=== PATIENT | female | born 1990 | race Caucasian/White ===

== ENCOUNTER → 2017-12-07 13:53 | Outpatient (CLI) | payer OTHER, SELFPAY ==
--- NOTE | 2017-12-07 14:03 | XR_ITS ---
XR chest 2V HISTORY: ITS.REASON: COUGH ORDERING PHYSICIAN: Rod Hairston MD PATIENT AGE: 27 years COMPARISON: None FINDINGS: The cardiomediastinal silhouette and pulmonary vascularity are within normal limits. The lungs are clear without infiltrates, suspicious nodules, or pleural effusions. There is mild bronchial thickening in the right perihilar region. No acute bony abnormalities. IMPRESSION: Mild bronchial thickening suggesting bronchitis
== END ==
PROVIDERS: PCP Family Medicine; Visit Provider Family Medicine
DX: R05 Cough (principal)
CPT/HCPCS: 71046

== ENCOUNTER → 2020-03-13 13:54 | Outpatient (CLI) | payer OTHER, SELFPAY ==
--- NOTE | 2020-03-13 14:04 | US_ITS ---
PROCEDURE: US THYROID CLINICAL INDICATION: THYROMEGALY COMPARISON: FINDINGS: Right lobe: Right lobe is 3.8 x 1.2 x 1.2 cm has an unremarkable appearance. Left lobe: 4.3 x 0.8 x 1.4 cm. A 4 mm hypoechoic nodules present in the lower pole on the left Isthmus: Unremarkable Additional findings: Small nodule lower pole on the left. IMPRESSION: Small nodule lower pole on the left, consider 6-12 month follow-up otherwise Dictated by: Edgardo Palomino MD 03/13/2020 17:54 Edgardo Palomino MD in [place] 03/13/2020 17:54
== END ==
PROVIDERS: PCP Family Medicine; Visit Provider Family Medicine
DX: E01.0 Iodine-deficiency related diffuse (endemic) goiter (principal)
CPT/HCPCS: 76536

== ENCOUNTER → 2021-01-17 15:50 | Outpatient (CLI) | payer OTHER, SELFPAY | PROVIDERS: PCP Family Medicine; Visit Provider Nurse Practitioner | DX: Z20.822 Contact with and (suspected) exposure to COVID-19 (principal) | CPT/HCPCS: C9803; U0003; U0005 ==

== ENCOUNTER → 2021-02-23 20:17 | Outpatient (CLI) | payer OTHER, SELFPAY ==
--- NOTE | 2021-02-23 20:38 | XR_ITS ---
PROCEDURE INFORMATION: Exam: XR Chest Exam date and time: 02/23/2021 8:38 PM Age: 30 years old Clinical indication: Screening exam; Other screening; Patient HX: Covid screening TECHNIQUE: Imaging protocol: XR of the chest. Views: 1 view. COMPARISON: CR CXR2V XR chest 2V 12/07/2017 2:06 PM FINDINGS: Lungs: Unremarkable. No consolidation. Pleural spaces: Unremarkable. No pleural effusion. No pneumothorax. Heart/Mediastinum: Unremarkable. No cardiomegaly. Bones/joints: Unremarkable. IMPRESSION: No acute findings.
[2021-02-23 20:40] LABS: Adenovirus,PCR Not Detected (NotDetected); Bordetella Pertussis Not Detected (NotDetected); Chlamydophila Pneumoniae, PCR Not Detected (NotDetected); Coronavirus 19, PCR Not Detected (NotDetected); Coronavirus 229E Not Detected (NotDetected); Coronavirus NL63 Not Detected (NotDetected); Coronavirus OC43 Not Detected (NotDetected); Coronovirus HKU1,PCR Not Detected (NotDetected); Human Metapneumovirus Not Detected (NotDetected); Influenza A, PCR Not Detected (NotDetected); Influenza AH1, 2009 Not Detected (NotDetected); Influenza AH1, PCR Not Detected (NotDetected); Influenza AH3,PCR Not Detected (NotDetected); Influenza B, PCR Not Detected (NotDetected); Mycoplasma Pneumoniae, PCR Not Detected (NotDetected); Parainfluenza 1, PCR Not Detected (NotDetected); Parainfluenza 2, PCR Not Detected (NotDetected); Parainfluenza 3, PCR Not Detected (NotDetected); Parainfluenza 4, PCR Not Detected (NotDetected); Respiratory Syncytial Virus Not Detected (NotDetected); Rhinovirus/Enterovirus Not Detected (NotDetected)
[2021-02-23 20:46] LABS: Basophils # 0.1 K/mm3 (0-0.2); Basophils % 1.1 % (0.1-2.0); Eosinophils # 0.7 K/mm3 (0.0-0.4); Eosinophils % 7.1 % (0.1-12.0); Hemoglobin 14.8 g/dL (12.2-16.2); Lymphocytes # 3.4 K/mm3 (0.7-4.5); Mean Corpuscular HGB Conc 32.9 g/dL (31.8-35.4); Mean Corpuscular Hemoglobin 29.8 pg (27.0-31.2); Mean Corpuscular Volume 90.5 fl (81-99); Mean Platelet Volume 7.2 fl (7.4-10.4); Monocytes # 0.3 K/mm3 (0.1-1.0); Monocytes % 3.1 % (1.7-9.3); Neutrophils # 5.5 K/mm3 (1.8-7.8); Neutrophils % 54.7 % (37.0-80.0); Platelet Count 349 K/mm3 (142-424); Red Blood Count 4.98 M/mm3 (4.20-5.40); Red Cell Distribution Width 12.5 % (11.5-17.5); White Blood Count 10.1 K/mm3 (4.8-10.8)
== END ==
PROVIDERS: PCP Family Medicine; Visit Provider Family Medicine
DX: Z20.822 Contact with and (suspected) exposure to COVID-19 (principal)
CPT/HCPCS: 36415; 71045; 85025; 87581; 87632; 87798; C9803; U0003; U0005

== ENCOUNTER → 2021-05-09 10:46 | Outpatient (CLI) | payer OTHER, SELFPAY ==
--- NOTE | 2021-05-09 10:49 | US_ITS ---
FINAL REPORT CLINICAL HISTORY: THYROID NODULE COMPARISON: March 13, 2020 FINDINGS: THYROID ULTRASOUND The right lobe of the thyroid measures 4.2 x 1.2 x 1.1 cm. The left lobe of the thyroid measures 4.2 x 1.3 x 0.9 cm. The parenchyma shows normal echogenicity. There is a 6 x 5 x 3 mm solid isoechoic TI-RADS 3 nodule in in the left lobe of the thyroid that is not significantly changed from the prior exam. There is a 2 mm anechoic right thyroid nodule consistent with a TI-RADS 1 that is not changed from the prior exam. No dominant mass is seen. IMPRESSION: No significant change in small nodules. No follow-up recommended. Reviewed, Interpreted and Dictated by Daniel Benavides III, MD Transcribed by Rahul Beck Authenticated by Daniel Benavides III, MD on 05/09/2021 01:44:43 PM [facility]
== END ==
PROVIDERS: PCP Family Medicine; Visit Provider Family Medicine
DX: E04.1 Nontoxic single thyroid nodule (principal)
CPT/HCPCS: 76536

== ENCOUNTER → 2021-08-21 11:41 | Outpatient (CLI) | payer OTHER, SELFPAY | PROVIDERS: PCP Family Medicine; Visit Provider Family Medicine | DX: U07.1 COVID-19 (principal) | CPT/HCPCS: C9803; U0003; U0005 ==

== ENCOUNTER 2022-02-18 23:29 | Emergency (ER) | payer OTHER, SELFPAY ==
[2022-02-18 23:30] VITALS: BP 150/83; PULSE 104; RESP 16; TEMP 37.3; O2SAT 98; BMI 28.2
--- NOTE | 2022-02-18 23:56 | CT_ITS ---
PROCEDURE INFORMATION: Exam: CT Abdomen And Pelvis With Contrast Exam date and time: 02/19/2022 12:23 AM Age: 31 years old Clinical indication: Abdominal pain; Localized; Right lower quadrant (rlq); Patient HX: Rlq abd pain; Additional info: Rlq pain TECHNIQUE: Imaging protocol: Computed tomography of the abdomen and pelvis with contrast. Radiation optimization: All CT scans at this facility use at least one of these dose optimization techniques: automated exposure control; mA and/or kV adjustment per patient size (includes targeted exams where dose is matched to clinical indication); or iterative reconstruction. Contrast material: ISOVUE; Contrast volume: 75 ml; Contrast route: IV; COMPARISON: CR XR CHEST PORTABLE 02/23/2021 8:30 PM FINDINGS: Lungs: Visualized lung bases are clear. Heart: Heart size normal. Mediastinal space: The visualized distal esophagus is largely contracted without gross abnormality. Liver: Normal contour. No mass lesions. No intrahepatic biliary ductal dilatation. Gallbladder and bile ducts: The gallbladder is partially contracted but otherwise unremarkable. Nondilated common bile duct. Pancreas: Normal. No inflammatory changes or ductal dilation. Spleen: Normal. No splenomegaly. Adrenal glands: Normal. No adrenal mass. Kidneys and ureters: No acute abnormalities. No hydronephrosis or hydroureter. No urinary tract stones are identified. Stomach and bowel: The stomach is moderately distended with food and fluid content. Question mildly excessive fluid content in the mid and distal small bowel segments with equivocal slight increase in bowel wall enhancement. This is suspicious for mild gastroenteritis. No tara bowel dilatation or transition point. No evidence of bowel obstruction, perforation, or abscess. No acute colonic abnormalities. Appendix: The appendix is normal in caliber measuring 2-3 mm diameter, and demonstrates no evidence of appendicitis. 3 mm hyperdense appendicolith in the proximal appendiceal lumen Intraperitoneal space: No free fluid or air. Vasculature: No acute process. No abdominal aortic aneurysm. Lymph nodes: No adenopathy. Urinary bladder: Unremarkable as visualized. Reproductive: Unremarkable as visualized. Bones/joints: No acute osseous abnormalities. Soft tissues: Unremarkable. IMPRESSION: 1. The appendix is normal in caliber and demonstrates no evidence of acute appendicitis. There is a small 3 mm appendicolith in the appendiceal lumen. 2. Question mild changes of gastroenteritis. No evidence of bowel obstruction, perforation, or abscess.
[2022-02-18 23:59] LABS: Microscopic, Urine URINE MICROSCOPIC (MICROSCOPIC)
[2022-02-19 00:01] LABS: Appearance,Urine SL CLOUDY (Clear); Bilirubin,Urine Negative (Negative); Blood, Urine Negative (Negative); Color,Urine YELLOW (Yellow); Glucose,Urine (UA) Negative (Negative); Ketones,Urine TRACE (Negative); Leukocyte Esterase,Urine Negative (Negative); Nitrate,Urine Negative (Negative); Protein,Urine Negative (Negative); Specific Gravity, Urine 1.015 (1.005-1.030); Urobilinogen,Urine 0.2 EU/dl (0.2)
[2022-02-19 00:04] LABS: Urine Pregnancy, HCG Qual. Negative (Negative)
[2022-02-19 00:33] LABS: Bacteria,Urine Trace /lpf; WBC,Urine Occasional #/hpf (0-3)
[2022-02-19 00:34] LABS: Basophils # 0.1 K/mm3 (0-0.2); Basophils % 1.3 % (0.1-2.0); Eosinophils # 0.4 K/mm3 (0.0-0.4); Eosinophils % 4.7 % (0.1-12.0); Hematocrit 46.6 % (37.0-47.0); Hemoglobin 14.8 g/dL (12.2-16.2); Lymphocytes # 3.3 K/mm3 (0.7-4.5); Mean Corpuscular HGB Conc 31.7 g/dL (31.8-35.4); Mean Corpuscular Hemoglobin 29.4 pg (27.0-31.2); Mean Corpuscular Volume 92.8 fl (81-99); Mean Platelet Volume 7.7 fl (7.4-10.4); Monocytes # 0.4 K/mm3 (0.1-1.0); Monocytes % 5.1 % (1.7-9.3); Neutrophils # 3.4 K/mm3 (1.8-7.8); Neutrophils % 44.9 % (37.0-80.0); Platelet Count 368 K/mm3 (142-424); Red Blood Count 5.02 M/mm3 (4.20-5.40); Red Cell Distribution Width 12.5 % (11.5-17.5); White Blood Count 7.5 K/mm3 (4.8-10.8)
[2022-02-19 00:36] LABS: Chloride 99 mmol/L (98-107); Potassium 3.5 mmoL/L (3.5-5.1); Sodium 137 mmol/L (136-145)
[2022-02-19 00:39] LABS: Alanine Aminotransferase 25 U/L (12-78); Albumin Level 4.5 g/dl (3.5-5.0); Albumin/Globulin Ratio 1.6 (1.1-1.8); Alkaline Phosphatase 70 U/L (38-126); Anion Gap 13.5 mEq/L (5-15); Aspartate Amino Transferase 38 U/L (14-36); Bilirubin,Total 0.2 mg/dl (0.2-1.3); Blood Urea Nitrogen 16 mg/dl (7-17); Carbon Dioxide 28 mmol/L (22.0-30.0); Creatinine Clearance Estimated 116 mL/min (50-200); Estimated Glomerular Filt Rate 74 ml/min (>60); GFR (African American) 90 ML/MIN (>60); Globulin 2.9 g/dL (1.3-3.2); Total Protein,Serum 7.4 g/dl (6.3-8.2)
[2022-02-19 00:40] LABS: Calcium 9.3 mg/dl (8.4-10.2); Glucose 118 mg/dl (74-100)
[2022-02-19 00:45] LABS: C-Reactive Protein 9.7 mg/L (0-4)
[2022-02-19 01:24] LABS: Erythrocyte Sedimentation Rate 12 mm/hr (0-20)
--- NOTE | 2022-02-19 01:55 | PC.NURSE ---
Dr. Zapien at
--- NOTE | 2022-02-19 02:16 | HMH.EDABDPAI ---
Discharge Plan Disposition Chief Complaint: Abdominal Pain Referrals Follow up/Referrals: Rod Hairston MD [Primary Care Provider] - See instructions Clinical Impressions Clinical Impression: Abdominal pain Instructions Patient Instructions: DI for Acute Abdominal Pain Discharge ED Provider: Liang Zapien Abdominal Pain HPI General Chief Complaint: Abdominal Pain Stated Complaint: Burning pain in lower right abdomen Time Seen by Provider: 02/19/22 02:34 Mode of Arrival: Ambulatory Source of Information: Patient Limitations: No Limitations Description of Symptoms (Recalled from ER Triage Doc. by RN): Pt reports pain in RLQ of abdomen. She describes pain as a now contant burning sensation that worses when she is straining. She says she initally noticed a pain months ago after yogo but has become more intense the past 2 days. She denies N/V/D, fevers, or changes in bowel or bladder. History of Present Illness HPI narrative: pt with pain rt lower abd - burning - worse with rest with leg lifting and straining over the last 2 days complaint: abdominal pain Onset (ago): day(s) Consistency: intermittent Location: RLQ Severity: moderate Quality: burning Radiation: RLQ Associated symptoms: denies other symptoms Related Data Allergies Allergy/AdvReac Type Severity Reaction Status Date / Time No Known Allergies Allergy Verified 02/18/22 23:55 PFSH PFSH Social History Smoking Status: Never smoker alcohol intake: never current occupational status: employed Travel in the last 8 weeks: None ROS Obtained: Yes All systems reviewed & no additional complaints except as documented Physical Exam General General appearance: alert Head Head exam: normocephalic Eye Eye exam: Present PERRL and EOMI ENT ENT exam: Present mucous membranes moist Neck Neck exam: Present trachea midline Respiratory Respiratory exam: Present normal lung sounds bilaterally; Absent respiratory distress Cardiovascular Cardiovascular exam: Present regular rate Abdominal Exam Abdominal exam: Present soft and tenderness; Absent guarding or rebound Abdominal tenderness: Present RLQ and mild Comment: no def hernia Extremities Exam Extremities exam: Present full ROM Neurological Exam Neurological exam: Present alert, oriented X3 and CN II-XII intact Psychiatric Psychiatric exam: Present normal affect Skin Skin exam: Present intact Medical Decision Making Medical Records Medical records reviewed: Yes I reviewed the patient's medical records. Juan Inquiry Pt receiving controlled substance: No Vital Signs: 02/18/22 23:30 Temperature 99.1 F Temperature Source Oral Pulse Rate [Right Radial] 104 H Respiratory Rate 16 Blood Pressure [Right Arm] 150/83 H Blood Pressure Mean [Right Arm] 105 Blood Pressure Source [Right Arm] Automatic Cuff Blood Pressure Position [Right Arm] Sitting 02 Sat by Pulse Oximetry 98 Oxygen Delivery Method Room Air Lab Data Lab results reviewed: Yes I reviewed the patient's lab results. Lab Results 02/18/22 23:47: Urine Color Yellow, Urine Appearance Sl cloudy, Urine pH 8.0, Ur Specific [place] 1.015, Urine Protein Negative, Urine Glucose (UA) Negative, Urine Ketones Trace, Urine Blood Negative, Urine Nitrate Negative, Urine Bilirubin Negative, Urine Urobilinogen 0.2, Ur Leukocyte Esterase Negative, Urine RBC None, Urine WBC Occasional, Ur Squamous Epith Cells 3-5, Urine Bacteria Trace 02/18/22 23:47: Urine HCG, Qual Negative 02/19/22 00:24: WBC 7.5, RBC 5.02, Hgb 14.8, Hct 46.6, MCV 92.8, MCH 29.4, MCHC 31.7 L, RDW 12.5, Plt Count 368, MPV 7.7, Neut % (Auto) 44.9, Lymph % (Auto) 44.0, [place] % (Auto) 5.1, Eos % (Auto) 4.7, Baso % (Auto) 1.3, Neut # (Auto) 3.4, Lymph # (Auto) 3.3, [place] # (Auto) 0.4, Eos # (Auto) 0.4, Baso # (Auto) 0.1, ESR 12 02/19/22 00:24: Sodium 137, Potassium 3.5, Chloride 99, Carbon Dioxide 28, Anion Gap 13.5, BUN 16, Creatinine 0.90, Estimated Creat Clear 116, Estimated
[2022-02-19 02:41] VITALS: BP 145/75; PULSE 88; RESP 18; TEMP 36.6; O2SAT 99
== END 2022-02-19 02:47 | disposition home or self-care (01) ==
LOC: ER 02-19
PROVIDERS: Emergency Provider Emergency Medicine; PCP Family Medicine
DX: R10.31 Right lower quadrant pain (principal); J45.909 Unspecified asthma, uncomplicated; Z79.3 Long term (current) use of hormonal contraceptives; Z79.51 Long term (current) use of inhaled steroids; Z79.52 Long term (current) use of systemic steroids; Z79.899 Other long term (current) drug therapy; Z91.018 Allergy to other foods; Z82.49 Family history of ischemic heart disease and other diseases of the circulatory system; Z83.438 Family history of other disorder of lipoprotein metabolism and other lipidemia; Z83.49 Family history of other endocrine, nutritional and metabolic diseases
CPT/HCPCS: 74177; 80053; 81001; 81025; 85025; 85651; 86140; 96374; 96375; 99285; Q9967

== ENCOUNTER → 2022-02-24 08:38 | Outpatient (CLI) | payer OTHER, SELFPAY ==
--- NOTE | 2022-02-24 08:39 | US_ITS ---
FINAL REPORT CLINICAL HISTORY: right lower quadrant pain FINDINGS: Ultrasound images of the right upper quadrant were obtained. The pancreas is partially obscured. The liver parenchyma is normal in echogenicity. The gallbladder is well visualized and the wall appears normal. There are no gallstones. The common duct is normal. Limited images of the right kidney are unremarkable. Additional limited images through the right lower quadrant demonstrate no mass or fluid collection. IMPRESSION: No acute process. Reviewed, Interpreted and Dictated by Daniel Benavides III, MD Transcribed by Rahul Beck Authenticated and . [facility]
== END ==
PROVIDERS: PCP Family Medicine; Visit Provider Family Medicine
DX: R10.31 Right lower quadrant pain (principal)
CPT/HCPCS: 76705

== ENCOUNTER → 2022-11-12 08:01 | Outpatient (CLI) | payer OTHER, SELFPAY ==
[2022-11-12 08:05] LABS: Microscopic, Urine URINE MICROSCOPIC (MICROSCOPIC)
[2022-11-12 08:21] LABS: Appearance,Urine CLEAR (Clear); Bilirubin,Urine Negative (Negative); Blood, Urine Negative (Negative); Color,Urine YELLOW (Yellow); Glucose,Urine (UA) Negative (Negative); Ketones,Urine Negative (Negative); Leukocyte Esterase,Urine Negative (Negative); Nitrate,Urine Negative (Negative); Protein,Urine Negative (Negative); Specific Gravity, Urine >= 1.030 (1.005-1.030); Urobilinogen,Urine 0.2 EU/dl (0.2)
--- NOTE | 2022-11-12 08:26 | XR_ITS ---
FINAL REPORT CLINICAL HISTORY: abd pain x 5 day , per patient pain around pancreas lmp x 3 weeks ago FINDINGS: TWO-VIEW ABDOMEN There is a nonspecific, nonobstructive bowel gas pattern. There are no abnormally dilated loops of small bowel. There is a moderate amount of stool throughout the colon. No abnormal calcification is seen. There is no free air. There is a mild thoracolumbar scoliosis convex to the right measuring 15 degrees. IMPRESSION: Moderate stool burden. Reviewed, Interpreted and Dictated by Glenn Davidson MD Transcribed by Julieta Malik Authenticated and [facility]
[2022-11-12 08:28] LABS: Basophils # 0.1 K/mm3 (0-0.2); Basophils % 0.9 % (0.1-2.0); Eosinophils # 0.5 K/mm3 (0.0-0.4); Hemoglobin 14.2 g/dL (12.2-16.2); Lymphocytes # 2.5 K/mm3 (0.7-4.5); Lymphocytes % 38.4 % (10-50); Mean Corpuscular HGB Conc 32.3 g/dL (31.8-35.4); Mean Corpuscular Hemoglobin 29.4 pg (27.0-31.2); Mean Platelet Volume 7.8 fl (7.4-10.4); Monocytes # 0.3 K/mm3 (0.1-1.0); Monocytes % 3.9 % (1.7-9.3); Neutrophils # 3.2 K/mm3 (1.8-7.8); Neutrophils % 49.9 % (37.0-80.0); Platelet Count 279 K/mm3 (142-424); Red Blood Count 4.84 M/mm3 (4.20-5.40); White Blood Count 6.4 K/mm3 (4.8-10.8)
[2022-11-12 08:33] LABS: Bacteria,Urine Trace /lpf
[2022-11-12 08:40] LABS: Hemoglobin A1C 5.6 % (4.0-6.0)
[2022-11-12 09:10] LABS: Chloride 105 mmol/L (98-107)
[2022-11-12 09:11] LABS: Potassium 4.3 mmoL/L (3.5-5.1); Sodium 139 mmol/L (136-145)
[2022-11-12 09:13] LABS: Alanine Aminotransferase 30 U/L (12-78); Alkaline Phosphatase 94 U/L (38-126); Amylase 58 U/L (30-110); Anion Gap 12.3 mEq/L (5-15); Aspartate Amino Transferase 27 U/L (14-36); Bilirubin,Total 0.3 mg/dl (0.2-1.3); Blood Urea Nitrogen 13 mg/dl (7-17); Calcium 9.3 mg/dl (8.4-10.2); Carbon Dioxide 26 mmol/L (22.0-30.0); Estimated Glomerular Filt Rate 74 ml/min (>60); GFR (African American) 89 ML/MIN (>60); Glucose 98 mg/dl (74-100)
[2022-11-12 09:14] LABS: Albumin Level 3.9 g/dl (3.5-5.0); Albumin/Globulin Ratio 1.4 (1.1-1.8); Chol/HDL Ratio 3.8 (1-3.5); Cholesterol 214 mg/dl (140-200); Globulin 2.8 g/dL (1.3-3.2); HDL Cholesterol 56 mg/dl (40-60); Iron 71 ug/dL (37-170); Lipase 95 U/L (23-300); Total Protein,Serum 6.7 g/dl (6.3-8.2); Triglycerides 93 mg/dl (30-150); VLDL Cholesterol 19 mg/dL (0-40)
[2022-11-12 09:21] LABS: Free T4 (Free Thyroxine) 0.93 ng/dl (0.78-2.19)
[2022-11-12 09:22] LABS: C-Reactive Protein 3.1 mg/L (0-4)
[2022-11-12 09:25] LABS: Direct LDL Cholesterol 122.54 mg/dL (100-129)
[2022-11-12 09:31] LABS: 25-OH Vitamin D, Total 93.5 ng/mL (30-100)
[2022-11-12 09:35] LABS: Erythrocyte Sedimentation Rate 9 mm/hr (0-20)
[2022-11-12 09:36] LABS: Total Iron Binding Capacity 298 ug/dL (265-497)
[2022-11-12 09:45] LABS: Thyroid Stimulating Hormone 1.87 uIU/mL (0.465-4.68)
[2022-11-12 09:49] LABS: Ferritin 97.4 ng/ml (6.24-137)
[2022-11-12 13:14] LABS: Vitamin B12 282 pg/mL (239-931)
[2022-11-13 14:54] LABS: Endomysial IgA Antibody Negative (Negative)
[2022-11-13 18:24] LABS: Deamidated Gliadin Abs, IgA 5 units (0-19); Deamidated Gliadin Abs, IgG 2 units (0-19); Tissue Transglutaminase IgA Ab <2 U/mL (0-3); Tissue Transglutaminase IgG Ab <2 U/mL (0-5)
[2022-11-19 08:58] LABS: Reticulin IgA Antibody Negative titer (Neg:<1:2.5)
== END ==
PROVIDERS: PCP Nurse Practitioner Family; Visit Provider Nurse Practitioner Family
DX: R10.9 Unspecified abdominal pain (principal); R10.12 Left upper quadrant pain; R53.83 Other fatigue; Z13.1 Encounter for screening for diabetes mellitus; Z13.220 Encounter for screening for lipoid disorders; E66.9 Obesity, unspecified; Z68.30 Body mass index [BMI] 30.0-30.9, adult; Z79.899 Other long term (current) drug therapy
CPT/HCPCS: 36415; 74019; 80053; 80061; 81001; 82150; 82306; 82607; 82728; 83036; 83516; 83540; 83550; 83690; 84439; 84443; 85025; 85651; 86140; 86255; 86256; 87086

== ENCOUNTER 2023-05-05 14:48 | Outpatient (CLI) | payer OTHER, SELFPAY ==
[2023-05-06 06:42] LABS: HCV Ab Non Reactive (Non Reactive); HIV Screen 4th Generation wRfx Non Reactive (Non Reactive)
[2023-05-06 14:15] LABS: Tissue Transglutaminase IgA Ab <2 U/mL (0-3); Tissue Transglutaminase IgG Ab 2 U/mL (0-5)
== END 2023-05-05 23:59 ==
LOC: LAB.DROPOF 14:48
PROVIDERS: PCP Internal Medicine; Visit Provider Internal Medicine
DX: R10.9 Unspecified abdominal pain (principal); R19.7 Diarrhea, unspecified; Z11.59 Encounter for screening for other viral diseases; Z11.4 Encounter for screening for human immunodeficiency virus [HIV]
CPT/HCPCS: 83516; 86703; G0432

== ENCOUNTER 2023-05-14 09:00 | Outpatient (CLI) | payer OTHER, SELFPAY ==
[2023-05-21 00:08] LABS: Calprotectin, Fecal 10 ug/g (0-120)
== END 2023-05-14 23:59 ==
LOC: LAB.DROPOF 09:01
PROVIDERS: PCP Internal Medicine; Visit Provider Internal Medicine
DX: R10.9 Unspecified abdominal pain (principal); R19.7 Diarrhea, unspecified
CPT/HCPCS: 83993

== ENCOUNTER 2023-05-19 15:05 | Outpatient (POV) | payer OTHER, SELFPAY | END 2023-05-19 23:59 | disposition home or self-care (01) | LOC: SC 15:05 | PROVIDERS: PCP Internal Medicine; Visit Provider Dermatology | DX: Z00.00 Encounter for general adult medical examination without abnormal findings (principal) ==

== ENCOUNTER 2024-03-01 16:10 | Outpatient (CLI) | payer OTHER, SELFPAY ==
[2024-03-01 17:04] LABS: Basophils # 0.1 K/mm3 (0-0.2); Basophils % 1.4 % (0.1-2.0); Eosinophils # 0.4 K/mm3 (0.0-0.4); Eosinophils % 5.9 % (0.1-12.0); Hematocrit 41.9 % (37.0-47.0); Hemoglobin 14.1 g/dL (12.2-16.2); Lymphocytes # 2.3 K/mm3 (0.7-4.5); Lymphocytes % 31.7 % (10-50); Mean Corpuscular HGB Conc 33.8 g/dL (31.8-35.4); Mean Corpuscular Hemoglobin 29.3 pg (27.0-31.2); Mean Corpuscular Volume 86.9 fl (81-99); Mean Platelet Volume 7.3 fl (7.4-10.4); Monocytes # 0.4 K/mm3 (0.1-1.0); Monocytes % 4.9 % (1.7-9.3); Neutrophils # 4.1 K/mm3 (1.8-7.8); Neutrophils % 56.1 % (37.0-80.0); Platelet Count 286 K/mm3 (142-424); Red Blood Count 4.82 M/mm3 (4.20-5.40); Red Cell Distribution Width 13.5 % (11.5-17.5); White Blood Count 7.4 K/mm3 (4.8-10.8)
[2024-03-01 17:44] LABS: Erythrocyte Sedimentation Rate 10 mm/hr (0-20)
[2024-03-01 18:03] LABS: Alanine Aminotransferase 23 U/L (12-78); Albumin Level 4.4 g/dl (3.5-5.0); Albumin/Globulin Ratio 1.8 (1.1-1.8); Alkaline Phosphatase 82 U/L (38-126); Anion Gap 12.3 mEq/L (5-15); Aspartate Amino Transferase 30 U/L (14-36); Bilirubin,Total 0.4 mg/dl (0.2-1.3); Blood Urea Nitrogen 24 mg/dl (7-17); Calcium 9.5 mg/dl (8.4-10.2); Carbon Dioxide 25 mmol/L (22.0-30.0); Chloride 106 mmol/L (98-107); Estimated Glomerular Filt Rate 73 ml/min (>60); GFR (African American) 88 ML/MIN (>60); Globulin 2.4 g/dL (1.3-3.2); Glucose 90 mg/dl (74-100); Potassium 4.3 mmoL/L (3.5-5.1); Sodium 139 mmol/L (136-145); Total Protein,Serum 6.8 g/dl (6.3-8.2)
[2024-03-01 18:08] LABS: C-Reactive Protein 1.9 mg/L (0-4)
== END 2024-03-01 23:59 | disposition home or self-care (01) ==
LOC: LAB.DROPOF 03-02 10:06
PROVIDERS: PCP Internal Medicine; Visit Provider Internal Medicine
DX: B37.2 Candidiasis of skin and nail (principal); L29.9 Pruritus, unspecified; Z00.00 Encounter for general adult medical examination without abnormal findings
CPT/HCPCS: 80053; 85025; 85651; 86140

== ENCOUNTER 2024-10-18 15:55 | Outpatient (CLI) | payer OTHER, SELFPAY ==
[2024-10-18 18:36] LABS: Magnesium 2.2 mg/dl (1.6-2.3)
[2024-10-18 18:42] LABS: C-Reactive Protein 1.1 mg/L (0-4)
--- OUTSIDE RECORDS SUMMARY | 2024-10-19 11:27 | XMS_ITS | Continuity of Care Document ---
Author Name [facility] Organization [facility] Care Team Providers Care Flower Buncher Or Picker Name Role Phone [facility] Unavailable Unavailable Social History Combined list of available smoking, tobacco, and other social history from Department of Defense and Veterans Affairs facilities. Social History Type Response Date Comment Sourc e This section is an empty social history section. DoD
--- OUTSIDE RECORDS SUMMARY | 2024-10-19 11:29 | XMS_ITS | Clinical Summary ---
Author Organization [employer] ([place], [place], [place], [place]) Address [address] [place] [address] Care Team Providers Care Traffic Enumerator Name Role Phone Luly Roach S.A. Primary Care Provider Unav ailable Allergies No known active allergies Medications albuterol 90 mcg/actuation inhaler Inhale 1-2 puffs by mouth via inhaler every 6 (six) hours as needed for wheezing. 1 Inhaler 12/01/2023 5 Active montelukast (SINGULAIR) 10 mg tablet Take 1 tablet (10 mg total) by mouth daily. 11/13/2023 Active Social History Tobacco Use Types Packs/Day Years Used Date Smoking Tobacco: Never Smokeless Tobacco: Never Tobacco Cessation:Counseling Given: No Alcohol Use Standard Drinks/Week Comments Never 0 (1 standard drink = 0.6 oz pur e alcohol) Overall Financial Resource Strain (CARDIA) Answe r Date Recorded How hard is it for you to pa y for the very basics like food, housing, medical care, and heating? Not hard at all 12/29/2023 Hunger Vital Sign Answer Date Recorded Within the past 12 months, y ou worried that your food would run out before you got the money to buy more. Never true 12/29/19 24 Within the past 12 months, t he food you bought just didn't last and you didn't have money to get more. Never true 12/29/2023 PRAPARE - Transportation Answer Date Re corded In the past 12 months, has l ack of transportation kept you from medical appointments or from getting medications? No 10/2023 In the past 12 months, has l ack of transportation kept you from meetings, work, or from getting things needed for daily living? No 12/29/2023 Housing Stability Vital Sign Answer Mino e Recorded In the last 12 months, was t here a time when you were not able to pay the mortgage or rent on time? No 12/29/2023 Number of Times Moved in the Last Year Not on fi le 12/29/2023 Homeless in the Last Year Not on file 2023 Food Insecurity Answer Date Recorded Food run out past 12 months Not on file 11/21 Food did not last past 12 months Not on file 12/01/2023 Transportation Needs Answer Date Record ed Transportation unreliable past 12 months Not on file 12/29/2023 Employment Answer Date Recorded Help finding and keeping a job Not on file 0 12/01/2023 Family and Community Support Answer Mino e Recorded Help with Day to Day Activities Not on file 12/01/2023 Feeling Lonely or Isolated Not on file 11/30 Educational Attainment Answer Date Hank rded Speak language other than Congolese at home Not on file 12/01/2023 Want help with school or training Not on file 12/01/2023 Substance Use Answer Date Recorded Used prescription meds for non-medical reasons N ot on file 12/01/2023 Used illegal drugs past 12 months Not on file 12/01/2023 Comments No Sex and Gender Information Value Date Recorded Sex Assigned at Not on file Legal Sex Female 4:35 PM CDT Gender Identity Not on file Sexual Orientation Not on file Last Filed Vital Signs Vital Sign Reading Time Taken Comments Blood Pressure 123/83 12/28/2023 2:50 PM EDT Pulse 71 12/28/2023 2:50 PM EDT Temperature 36.6 C (97.8 F) 12/01/2023 12:21 AM EDT Respiratory Rate 20 12/01/2023 1:33 AM EDT Oxygen Saturation 100% 12/01/2023 1:33 AM EDT Inhaled Oxygen Concentration - - Weight 82.8 kg (182 lb 9.6 oz) 12/28/2023 2:50 P M EDT Height 165.1 cm (5' 5 ) 12/28/2023 2:50 PM EDT Body Mass Index 30.39 12/28/2023 2:50 PM EDT Plan of Treatment Health Maintenance Due Date Last Done Comments Depression Screening (12+) 2004 HIV Screening 07/13/2007 Hepatitis C Screening 2010 Pneumococcal Vaccine: 0-49 Y ears (1 of 2 - PCV) 07/13/2011 Lipid Panel 2012 DTAP/TDAP/TD VACCINES (3 - T d or Tdap) 09/05/2020 09/05/2010, 06/02/1997 COVID-19 VACCINE ( season) 2023 02/24/2021, 06/29/2020, 06/05/2020 Influenza Vaccine (#1) 2024 Tobacco Cessation Counseling and Screening (12+) 12/27/2024 12/28/2023 Pap Smear 12/27/2026 12/28/2023 Procedures Procedure Name Priority Date/Time Associated Diagnosis Comments PAP SMEAR, THIN PREP (MCT BKR) AP Routine 12/28/2023 12:00 AM EDT from Last 3 Months or Most Recently Relevant to Health Maintenance Results * Pap Smear, Thin Prep (12/28/2023 12:00 AM EDT) Vaginal/Cervical/ Endocervical OTHER / Unknown Historical Provider MD PATHOLOGY/CYTOLOGY ORDERA BLES Final Result Performing Organization Address City/State/[facility] Co de Phone Number [facility] [address] from Last 3 Months or Most Recently Relevant to Health Maintenance Insurance [facility] [employer] Care Teams Traffic Enumerator Relationship Specialty Start Date End Date Luly Roach S.A. PCP - General 12/01/23
--- OUTSIDE RECORDS SUMMARY | 2024-10-19 11:29 | XMS_ITS | Referral Summary ---
Author Organization [employer] ([place], [place], [place], [place]) Address [address] [place] [address] Care Team Providers Care Afloat Cryptologic Manager Name Role Phone Luly Roach S.A. Primary [...] Date Hank rded Speak language other than North Korean at home Not on file 12/01/2023 Want [...] 12/28/2023 2:50 PM EDT Plan of Treatment Not on file Procedures Procedure Name Priority Date/Time Associated Diagnosis Comments PAP SMEAR, THIN PREP (MCT BKR) AP Routine 12/28/2023 12:00 AM EDT from Last 3 Months or Most Recently Relevant to Health Maintenance Results * Pap Smear, Thin Prep (12/28/2023 12:00 AM EDT) Vaginal/Cervical/ Endocervical OTHER / Unknown us Historical Provider MD PATHOLOGY/CYTOLOGY ORDERA BLES Final Result [facility] [address] from Last 3 Months or Most Recently Relevant to Health Maintenance Insurance [facility] Care Teams Afloat Cryptologic Manager Relationship Specialty Start Date End Date Luly Roach S.A. PCP - General 12/01/23
--- OUTSIDE RECORDS SUMMARY | 2024-10-19 11:29 | XMS_ITS | Clinical Summary ---
Author Organization Healthcare Address [address] [place] [address] Care Team Providers Care Flumer Name Role Phone Rod Hairston MD Primary Care Provider + [phone] Family History Medical History Relation Name Comments Hypothyroidism Mother Hypothyroidism Sister Relation Name Status Comments Mother Sister Social History Tobacco Use Types Packs/Day Years Used Date Smoking Tobacco: Never Alcohol Use Standard Drinks/Week Comments Yes 0 (1 standard drink = 0.6 oz pur e alcohol) Comments Unknown Sex and Gender Information Value Date Recorded Sex Assigned at Not on file Legal Sex Female 6:10 PM EDT Gender Identity Not on file Sexual Orientation Not on file Last Filed Vital Signs Vital Sign Reading Time Taken Comments Blood Pressure - - Pulse - - Temperature - - Respiratory Rate - - Oxygen Saturation - - Inhaled Oxygen Concentration - - Weight 65 kg (143 lb 4.8 oz) 12/08/2013 2:16 PM EDT Height 167.6 cm (5' 6 ) 12/08/2013 2:16 PM EDT Body Mass Index 23.13 12/08/2013 2:16 PM EDT Plan of Treatment Not on file Care Teams Flumer Relationship Specialty Start Date End Date Rod Hairston MD [address] [place] [address] PCP - General 08/03/20
--- OUTSIDE RECORDS SUMMARY | 2024-10-19 11:29 | XMS_ITS | Clinical Summary ---
Author Organization [facility] Address [facility] [place] [address] Care Team Providers Care Public Health Clinical Nurse Specialist Name Role Phone Pcp, No Primary Care Provider [phone] Source Comments This information has been disclosed to you from confidential records protectedfrom disclosure by state law. You shall make no further disclosure of thisinformation without the specific, written, and informed release of theindividual to whom it pertains, or as otherwise permitted by law. A generalauthorization for the release of medical or other information is not sufficientfor the purposes of therelease of HIV test results or diagnoses. [id number] Social History Tobacco Use Types Packs/Day Years Used Date Smoking Tobacco: Never Assessed Comments Unknown Sex and Gender Information Value Date Recorded Sex Assigned at Not on file Legal Sex Female 4:17 PM EDT Gender Identity Not on file Sexual Orientation Not on file Plan of Treatment Health Maintenance Due Date Last Done Comments Hepatitis C Screening (MyChart) 1992 Alcohol Misuse Screening 2010 Depression Screening 2010 HIV Screening 2010 Immunization: Hepatitis B (1 of 3 - 19+ 3-dose series) 07/13/2011 Immunization: DTaP/Tdap/Td ( 3 - Td or Tdap) 09/05/2020 09/05/2010, 06/02/1997 Cervical Cancer Screening/Pa p Smear (MyChart) 2022 Immunization: COVID-19 ( season) 2023 02/24/2021, 06/29/2020, 06/05/2020 Immunization: Influenza (MyChart) (#1) 2024 Immunization: Pneumococcal Aged Out N o longer eligible based on patient's age to complete this topic Care Teams Public Health Clinical Nurse Specialist Relationship Specialty Start Date End Date Pcp, No No Address PCP - General 10/18/24
== END 2024-10-18 23:59 | disposition home or self-care (01) ==
LOC: LAB.DROPOF 10-19 11:26
PROVIDERS: PCP Internal Medicine; Visit Provider Internal Medicine
DX: J45.909 Unspecified asthma, uncomplicated (principal); R53.83 Other fatigue; M25.50 Pain in unspecified joint; E83.42 Hypomagnesemia
CPT/HCPCS: 83735; 86140; 86225; 86235

== ENCOUNTER 2024-10-29 11:22 | Outpatient (CLI) | payer OTHER, SELFPAY ==
--- OUTSIDE RECORDS SUMMARY | 2024-10-29 11:23 | XMS_ITS | Continuity of Care Document ---
Author Name [facility] Organization [facility] Care Team Providers Care Commodity Specialist Name Role Phone [facility] Unavailable Unavailable Social History Combined list of available smoking, tobacco, and other social history from Department of Defense and Veterans Affairs facilities. Social History Type Response Date Comment Sourc e This section is an empty social history section. DoD
--- OUTSIDE RECORDS SUMMARY | 2024-10-29 11:24 | XMS_ITS | Referral Summary ---
Author Organization [employer] ([place], [place], [place], [place]) Address [address] [place] [address] Care Team Providers Care Sanitation Inspector Name Role Phone Luly Roach S.A. Primary [...] Date Hank rded Speak language other than Cypriot at home Not on file 12/01/2023 Want [...] Final Result [facility] [address] from Last 3 Months or Most Recently Relevant to Health Maintenance Insurance [facility] Care Teams Sanitation Inspector Relationship Specialty Start Date End Date Luly Roach S.A. PCP - General 12/01/23
--- OUTSIDE RECORDS SUMMARY | 2024-10-29 11:24 | XMS_ITS | Clinical Summary ---
Author Organization Healthcare Address [address] [place] [address] Care Team Providers Care Gasoline Tractor Operator Name Role Phone Rod Hairston MD Primary Care Provider + [phone] Family History Medical History Relation Name Comments [...] of Treatment Not on file Care Teams Gasoline Tractor Operator Relationship Specialty Start Date End Date Rod Hairston MD [address] [place] [address] PCP - General 08/03/20
--- OUTSIDE RECORDS SUMMARY | 2024-10-29 11:24 | XMS_ITS | Clinical Summary ---
Author Organization [employer] ([place], [place], [place], [place]) Address [address] [place] [address] Care Team Providers Care Nozzleman Name Role Phone Luly Roach S.A. Primary [...] Date Hank rded Speak language other than Moldovan at home Not on file 12/01/2023 Want [...] ORDERA BLES Final Result Performing Organization Address City/State/[facility] Co de Phone Number [facility] [address] from Last 3 Months or Most Recently Relevant to Health Maintenance Insurance [facility] [employer] Care Teams Nozzleman Relationship Specialty Start Date End Date Luly Roach S.A. PCP - General 12/01/23
--- OUTSIDE RECORDS SUMMARY | 2024-10-29 11:24 | XMS_ITS | Clinical Summary ---
Author Organization [facility] Address [facility] [place] [address] Care Team Providers Care Cover Cutter Machine Name Role Phone Pcp, No Primary Care Provider [phone] Source Comments This information has been disclosed [...] therelease of HIV test results or diagnoses. [id number] Social History Tobacco Use Types Packs/Day [...] age to complete this topic Care Teams Cover Cutter Machine Relationship Specialty Start Date End Date Pcp, No No Address PCP - General 10/18/24
== END 2024-10-29 23:59 | disposition home or self-care (01) ==
LOC: LAB 11:22
PROVIDERS: PCP Internal Medicine; Visit Provider Internal Medicine
DX: M25.50 Pain in unspecified joint (principal); R53.83 Other fatigue; Z77.018 Contact with and (suspected) exposure to other hazardous metals
CPT/HCPCS: 36415; 82175; 83655; 83825

== ENCOUNTER 2024-12-08 11:27 | Emergency (ER) | payer OTHER, SELFPAY ==
[2024-12-08 11:34] VITALS: BP 145/90; PULSE 79; O2SAT 98
[2024-12-08 11:35] VITALS: BP 145/90; PULSE 79; RESP 19; TEMP 36.7; O2SAT 98; BMI 29.9
--- OUTSIDE RECORDS SUMMARY | 2024-12-08 11:38 | XMS_ITS | Clinical Summary ---
Author Organization [facility] Address [facility] [place] [address] Care Team Providers Care Teacher Education Director Name Role Phone Pcp, No Primary Care Provider [phone] Source Comments This information has been disclosed [...] therelease of HIV test results or diagnoses. [id number] Social History Tobacco Use Types Packs/Day [...] Smear (MyChart) 2022 Immunization: COVID-19 ( season) 2024 02/24/2021, 06/29/2020, 06/05/2020 Immunization: Influenza (MyChart) (#1) 2024 Immunization: Pneumococcal Aged Out N o longer eligible based on patient's age to complete this topic Care Teams Teacher Education Director Relationship Specialty Start Date End Date Pcp, No No Address PCP - General 10/18/24
--- OUTSIDE RECORDS SUMMARY | 2024-12-08 11:38 | XMS_ITS | Clinical Summary ---
Author Organization Healthcare Address [address] [place] [address] Care Team Providers Care Marine Electrician Apprentice Name Role Phone Rod Hairston MD Primary Care Provider + [phone] Family History Medical History Relation Name Comments [...] of Treatment Not on file Care Teams Marine Electrician Apprentice Relationship Specialty Start Date End Date Rod Hairston MD [address] [place] [address] PCP - General 08/03/20
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
[2024-12-08 11:56] LABS: Hematocrit 40.8 % (37.0-47.0); Hemoglobin 14.0 g/dL (12.2-16.2); Immature Granulocytes % 0.2 %; Mean Corpuscular HGB Conc 34.3 g/dL (31.8-35.4); Mean Corpuscular Hemoglobin 29.7 pg (27.0-31.2); Mean Corpuscular Volume 86.6 fl (81-99); Nucleated Red Blood Cells % 0 %; Platelet Count 279 K/mm3 (142-424); Red Blood Count 4.71 M/mm3 (4.20-5.40); Red Cell Distribution Width-SD 38.7 fL; White Blood Count 5.2 K/mm3 (4.8-10.8)
[2024-12-08] MEDS: 0.9 % SODIUM CHLORIDE 50 ML VIAL IV (12:01)
[2024-12-08] MEDS: IOPAMIDOL-370 (76%);100ML BOTTLE 160 ML IV (12:02)
[2024-12-08] MEDS: SODIUM CHLORIDE 0.9% 10ML SYR (RAD ONLY) 10 ML IV (12:02)
[2024-12-08 12:07] LABS: Albumin Level 4.6 g/dl (3.5-5.0); Chloride 105 mmol/L (98-107); Potassium 4.0 mmoL/L (3.5-5.1); Sodium 138 mmol/L (136-145)
[2024-12-08 12:10] LABS: Alanine Aminotransferase 26 U/L (12-78); Albumin/Globulin Ratio 1.6 (1.1-1.8); Alkaline Phosphatase 78 U/L (38-126); Anion Gap 12.0 mEq/L (5-15); Aspartate Amino Transferase 33 U/L (14-36); Bilirubin,Total 0.6 mg/dl (0.2-1.3); Blood Urea Nitrogen 8 mg/dl (7-17); Carbon Dioxide 25 mmol/L (22.0-30.0); Creatinine Clearance Estimated 149 mL/min (50-200); Creatinine,Serum 0.70 mg/dl (0.52-1.04); Estimated Glomerular Filt Rate 97 ml/min (>60); GFR (African American) 117 ML/MIN (>60); Globulin 2.9 g/dL (1.3-3.2); Total Protein,Serum 7.5 g/dl (6.3-8.2)
[2024-12-08 12:11] LABS: Calcium 9.1 mg/dl (8.4-10.2); Glucose 106 mg/dl (74-100); HCG Qualitative, Serum Negative (Negative)
[2024-12-08 12:13] LABS: Lipase 68 U/L (23-300)
[2024-12-08] MEDS: METHOCARBAMOL 500MG TABLET 1000 MG PO (12:25)
[2024-12-08 12:30] VITALS: BP 104/62; PULSE 62; O2SAT 98
[2024-12-08 13:00] VITALS: BP 122/76; PULSE 73; O2SAT 98
[2024-12-08 13:26] LABS: Hepatitis C Ab Qual. W/ RFX NEGATIVE (Negative)
--- NOTE | 2024-12-08 13:26 | PC.NURSE ---
I spoke to radiology, her scan is being read at this time.
--- NOTE | 2024-12-08 13:33 | PC.NURSE ---
I rounded on the pt. No new complaints. no needs voiced. call garner in reach. I updated her that her last scan is currently being read by the radiologist.
[2024-12-08 14:06] VITALS: BP 119/73; PULSE 73; RESP 18; TEMP 36.9; O2SAT 98
== END 2024-12-08 14:07 | disposition home or self-care (01) ==
PROVIDERS: Emergency Provider Emergency Medicine; PCP Internal Medicine
DX: R10.32 Left lower quadrant pain (principal); M54.59 Other low back pain; M79.632 Pain in left forearm; M25.562 Pain in left knee; N83.201 Unspecified ovarian cyst, right side; V49.40XA Driver injured in collision with unspecified motor vehicles in traffic accident, initial encounter
CPT/HCPCS: 70450; 70496; 70498; 71275; 73090; 73562; 74174; 80053; 83690; 84703; 85025; 86803; 87389; 99285; J0131; Q9967